=== PATIENT | male | born 1985 | race African-American/Black ===

== ENCOUNTER 2017-09-02 01:22 | Emergency (ER) | payer MEDICAID ==
[~2017-09-02] VITALS: Ht 180.3 cm; Wt 76.4 kg
[2017-09-02] MEDS ORDERED: KETOROLAC 60MG/2ML VIAL IM ONE (07:30)
[2017-09-02 07:54] VITALS: BP 133/81
== END 2017-09-02 08:29 | disposition home or self-care (01) ==
LOC: ER 01:22
DX: S42.252 Displaced fracture of greater tuberosity of left humerus (principal); F17.200 Nicotine dependence, unspecified, uncomplicated; F12.10 Cannabis abuse, uncomplicated; V00.131A Fall from skateboard, initial encounter; Y93.51 Activity, roller skating (inline) and skateboarding; Y92.89 Other specified places as the place of occurrence of the external cause; Y99.8 Other external cause status
CPT/HCPCS: 73030; 96372; 99284; J1885; Z7610; A4565